=== PATIENT | male | born 1940 | race African-American/Black ===

== ENCOUNTER 2020-01-21 15:33 | Emergency (ER) | payer MEDICARE, SELFPAY ==
--- NOTE | 2020-01-21 15:50 | ED.HA ---
HPI - Headache General Chief Complaint: Upper Respiratory Infection Stated Complaint: Weakness/Blurred Vision/Headache Time Seen by Provider: 01/21/20 15:50 Source: patient and RN notes reviewed History of Present Illness HPI Narrative: Patient is a 80-year-old male that presents the urgent care with complaints of dizziness, weakness, headache, blurred vision. Patient states that he was unable to find a ride and finally decided this afternoon that he needed to be seen so he drove himself here, approximately 1 mile. Patient did admit to not feeling comfortable driving. States that he feels like he is looking through a cheese cloth . Patient states that his headache has nearly subsided since the excruciating headache earlier this morning. Patient denies any history of CVA. Patient ambulates without difficulty or any obvious abnormality. No other acute complaints. No acute distress noted. Patient read the plan of care. Related Data Home Medications Medication Instructions Recorded Confirmed Claritin 01/21/20 Singulair 01/21/20 Unknown Hypertension Medication 01/21/20 levothyroxine 01/21/20 Allergies Allergy/AdvReac Type Severity Reaction Status Date / Time Penicillins Allergy Unknown Verified 01/21/20 16:05 Review of Systems Review of Systems: Narrative: CONSTITUTIONAL: Denies fever, chills, or sweats. EYES: Denies visual changes, redness, or discharge. ENT: Denies rhinorrhea, congestion, sore throat, or otalgia. CARDIOVASCULAR: Denies chest pain, palpitations, or edema. RESPIRATORY: Denies cough or dyspnea. GASTROINTESTINAL: Denies abdominal pain, nausea, vomiting, or diarrhea. GENITOURINARY: Denies dysuria or hematuria. SKIN: Denies rash or itching. MUSCULOSKELETAL: Denies back pain, joint pain, or myalgia. NEUROLOGIC: Reports of weakness, blurred vision and headache which is nearly subsided All other systems reviewed are negative, except as documented in HPI. PMFSH Social History Social History Gender identity (if verbalized by the patient): Male Comments At the time of my signature, I reviewed and agree with the nursing past medical, surgical, social, and family history. There is no relevant family history pertinent to the patient complaint. Exam Narrative: Exam Narrative: GENERAL: This is a well-nourished, well-developed patient, in no apparent distress. HEAD: normocephalic, atraumatic. EYES: PERRL. Sclera clear/white. Vision is grossly intact. EARS: External ears normal, auditory canals clear and without drainage, TMs normal without perforation. Hearing grossly intact. NOSE: External nose normal with no obvious nasal discharge, nares without redness, clear rhinorrhea. THROAT: Mucous membranes moist, posterior pharynx clear. NECK: Neck supple, non-tender without lymphadenopathy CARDIOVASCULAR: Regular rate and rhythm without murmurs, gallops, or rubs. RESPIRATORY: Clear to auscultation. Breath sounds equal bilaterally. No wheezes, rales, or rhonchi. SKIN: warm, intact with no suspicious lesions or rash, good texture and turgor. NEURO: awake, alert, and oriented to person, place and time. There were no obvious focal neurologic abnormalities. Equal dining room maid, facial nerve intact. No asymmetry. Gait normal. EXTREMITIES: No clubbing, cyanosis, or edema. Course Vital Signs Vital signs: Vital Signs Temperature 100.1 F H 01/21/20 15:53 Pulse Rate 89 01/21/20 15:53 Respiratory Rate 18 01/21/20 15:53 Blood Pressure 158/84 H 01/21/20 15:53 Pulse Oximetry 98 01/21/20 15:53 Temperature 100.1 F H 01/21/20 15:53 Pulse Rate 89 01/21/20 15:53 Respiratory Rate 18 01/21/20 15:53 Blood Pressure 158/84 H 01/21/20 15:53 Pulse Oximetry 98 01/21/20 15:53 Reviewed-patient is informed that they may have pre-hypertension or hypertension based on a blood pressure reading in the department. I recommend the patient call the primary care provider listed on their discharge instructions or a
[2020-01-21 15:53] VITALS: BP 158/84; PULSE 89; RESP 18; TEMP 37.8; O2SAT 98
== END 2020-01-21 16:30 | disposition left against medical advice (07) ==
PROVIDERS: Emergency Provider Nurse Practitioner Family
DX: J10.1 Influenza due to other identified influenza virus with other respiratory manifestations (principal); E05.90 Thyrotoxicosis, unspecified without thyrotoxic crisis or storm
CPT/HCPCS: 81003; 87804; 99203; G0463